=== PATIENT | female | born 1950 | race Caucasian/White ===

== ENCOUNTER 2019-04-14 07:50 | Outpatient (CLI) | payer OTHER ==
[~2019-04-14 07:50] MED LIST: ADVAIR 2501 DISK W/1 IH; ALBUTEROL17 G1 IH; ALPRAZOLAM0.025 GM MC; DILTIAZEM ER180 M1 PO; KLONOPIN2 MG/TAB PO; SEPTRA DS TABLE1 TAB PO; SYNTHROID50 MCG PO; ULTRACET PO; WELLBUTRIN XL300 MG PO
== END 2019-04-14 08:00 | disposition home or self-care (01) ==
LOC: NUCLEAR 07:50
DX: C50.812 Malignant neoplasm of overlapping sites of left female breast (principal)
CPT/HCPCS: 78815; A9552

== ENCOUNTER 2020-11-06 07:48 | Outpatient (CLI) | payer OTHER | END 2020-11-06 07:50 | disposition home or self-care (01) | LOC: NUCLEAR 07:48 | PROVIDERS: ATTEND Internal Medicine Hematology & Oncology | DX: C50.812 Malignant neoplasm of overlapping sites of left female breast (principal) | CPT/HCPCS: 78815; A9552 ==